=== PATIENT | male | born 1940 ===

== ENCOUNTER → 2020-09-20 | Outpatient (CLI) | payer MEDICARE, OTHER | LOC: LAB SHORT 08:50 → PLD 08:50 | DX: L81.4 Other melanin hyperpigmentation (principal); L82.1 Other seborrheic keratosis | CPT/HCPCS: 88305 ==

== ENCOUNTER → 2021-03-20 | Outpatient (CLI) | payer MEDICARE, OTHER | LOC: LAB SHORT 13:26 → LAB 13:26 | DX: D48.5 Neoplasm of uncertain behavior of skin (principal); L81.4 Other melanin hyperpigmentation; D22.5 Melanocytic nevi of trunk | CPT/HCPCS: 88305 ==

== ENCOUNTER → 2021-05-28 | Outpatient (CLI) | payer MEDICARE, OTHER | END | disposition home or self-care (01) | LOC: LAB SHORT 15:24 → LAB 15:24 | DX: D48.5 Neoplasm of uncertain behavior of skin (principal) | CPT/HCPCS: 88305 ==

== ENCOUNTER 2021-07-17 01:16 | Day surgery (SDC) | payer MEDICARE, OTHER | END 2021-07-17 22:45 | disposition home or self-care (01) | LOC: WOUND 01:16 | DX: L59.8 Other specified disorders of the skin and subcutaneous tissue related to radiation (principal); K14.8 Other diseases of tongue; R13.11 Dysphagia, oral phase; I89.0 Lymphedema, not elsewhere classified; K11.7 Disturbances of salivary secretion; Z85.819 Personal history of malignant neoplasm of unspecified site of lip, oral cavity, and pharynx; Z87.891 Personal history of nicotine dependence | CPT/HCPCS: G0463 ==

== ENCOUNTER 2021-07-24 03:35 | Day surgery (SDC) | payer MEDICARE, OTHER | END 2021-07-24 23:39 | disposition home or self-care (01) | LOC: HBO 03:35 | DX: L59.8 Other specified disorders of the skin and subcutaneous tissue related to radiation (principal); I89.0 Lymphedema, not elsewhere classified; K14.8 Other diseases of tongue; R13.11 Dysphagia, oral phase; K11.7 Disturbances of salivary secretion; Z85.819 Personal history of malignant neoplasm of unspecified site of lip, oral cavity, and pharynx; Z87.891 Personal history of nicotine dependence; Y84.2 Radiological procedure and radiotherapy as the cause of abnormal reaction of the patient, or of later complication, without mention of misadventure at the time of the procedure | CPT/HCPCS: G0277 ==

== ENCOUNTER 2021-07-25 03:20 | Day surgery (SDC) | payer MEDICARE, OTHER | END 2021-07-25 23:52 | disposition home or self-care (01) | LOC: HBO 03:20 | DX: L59.8 Other specified disorders of the skin and subcutaneous tissue related to radiation (principal); K14.8 Other diseases of tongue; R13.11 Dysphagia, oral phase; I89.0 Lymphedema, not elsewhere classified; K11.7 Disturbances of salivary secretion; Z87.891 Personal history of nicotine dependence; Z85.819 Personal history of malignant neoplasm of unspecified site of lip, oral cavity, and pharynx | CPT/HCPCS: G0277 ==

== ENCOUNTER 2021-07-26 03:54 | Day surgery (SDC) | payer MEDICARE, OTHER | END 2021-07-26 22:51 | disposition home or self-care (01) | LOC: HBO | DX: L59.8 Other specified disorders of the skin and subcutaneous tissue related to radiation (principal); K14.8 Other diseases of tongue; R13.11 Dysphagia, oral phase; I89.0 Lymphedema, not elsewhere classified; K11.7 Disturbances of salivary secretion; Z87.891 Personal history of nicotine dependence; Z85.819 Personal history of malignant neoplasm of unspecified site of lip, oral cavity, and pharynx | CPT/HCPCS: G0277 ==

== ENCOUNTER 2021-07-27 05:20 | Day surgery (SDC) | payer MEDICARE, OTHER | END 2021-07-27 22:58 | disposition home or self-care (01) | LOC: HBO 05:20 | DX: L59.8 Other specified disorders of the skin and subcutaneous tissue related to radiation (principal); K14.8 Other diseases of tongue; R13.11 Dysphagia, oral phase; I89.0 Lymphedema, not elsewhere classified; K11.7 Disturbances of salivary secretion; Z85.819 Personal history of malignant neoplasm of unspecified site of lip, oral cavity, and pharynx; Z87.891 Personal history of nicotine dependence | CPT/HCPCS: G0277 ==

== ENCOUNTER 2021-08-07 03:05 | Day surgery (SDC) | payer MEDICARE, OTHER | END 2021-08-07 22:57 | disposition home or self-care (01) | LOC: HBO 03:05 | DX: L59.8 Other specified disorders of the skin and subcutaneous tissue related to radiation (principal); K14.8 Other diseases of tongue; R13.11 Dysphagia, oral phase; I89.0 Lymphedema, not elsewhere classified; K11.7 Disturbances of salivary secretion; Z85.819 Personal history of malignant neoplasm of unspecified site of lip, oral cavity, and pharynx; Z87.891 Personal history of nicotine dependence | CPT/HCPCS: G0277 ==

== ENCOUNTER 2021-08-08 02:06 | Day surgery (SDC) | payer MEDICARE, OTHER | END 2021-08-08 23:12 | disposition home or self-care (01) | LOC: HBO 02:06 | DX: L59.8 Other specified disorders of the skin and subcutaneous tissue related to radiation (principal); Z85.819 Personal history of malignant neoplasm of unspecified site of lip, oral cavity, and pharynx; K14.8 Other diseases of tongue; R13.11 Dysphagia, oral phase; I89.0 Lymphedema, not elsewhere classified; K11.7 Disturbances of salivary secretion; Z87.891 Personal history of nicotine dependence | CPT/HCPCS: G0277 ==

== ENCOUNTER 2021-08-09 01:04 | Day surgery (SDC) | payer MEDICARE, OTHER | END 2021-08-09 23:35 | disposition home or self-care (01) | LOC: HBO 01:04 | DX: L59.8 Other specified disorders of the skin and subcutaneous tissue related to radiation (principal); Y84.2 Radiological procedure and radiotherapy as the cause of abnormal reaction of the patient, or of later complication, without mention of misadventure at the time of the procedure; K14.8 Other diseases of tongue; K11.7 Disturbances of salivary secretion; I89.0 Lymphedema, not elsewhere classified; R13.11 Dysphagia, oral phase; Z85.819 Personal history of malignant neoplasm of unspecified site of lip, oral cavity, and pharynx; Z87.891 Personal history of nicotine dependence | CPT/HCPCS: G0277 ==

== ENCOUNTER 2021-08-10 01:40 | Day surgery (SDC) | payer MEDICARE, OTHER | END 2021-08-10 12:00 | disposition home or self-care (01) | LOC: HBO 01:40 | DX: L59.8 Other specified disorders of the skin and subcutaneous tissue related to radiation (principal); Z85.819 Personal history of malignant neoplasm of unspecified site of lip, oral cavity, and pharynx; K14.8 Other diseases of tongue; R13.11 Dysphagia, oral phase; I89.0 Lymphedema, not elsewhere classified; K11.7 Disturbances of salivary secretion; Z87.891 Personal history of nicotine dependence | CPT/HCPCS: G0277 ==

== ENCOUNTER 2021-08-13 04:16 | Day surgery (SDC) | payer MEDICARE, OTHER | END 2021-08-13 12:00 | disposition home or self-care (01) | LOC: HBO 04:16 | DX: L59.8 Other specified disorders of the skin and subcutaneous tissue related to radiation (principal); K14.8 Other diseases of tongue; I89.0 Lymphedema, not elsewhere classified; K11.7 Disturbances of salivary secretion; R13.11 Dysphagia, oral phase; Z85.819 Personal history of malignant neoplasm of unspecified site of lip, oral cavity, and pharynx; Z87.891 Personal history of nicotine dependence | CPT/HCPCS: G0277 ==

== ENCOUNTER 2021-08-14 05:51 | Day surgery (SDC) | payer MEDICARE, OTHER | END 2021-08-14 22:54 | disposition home or self-care (01) | LOC: HBO 05:51 | DX: L59.8 Other specified disorders of the skin and subcutaneous tissue related to radiation (principal); K14.8 Other diseases of tongue; R13.11 Dysphagia, oral phase; I89.0 Lymphedema, not elsewhere classified; K11.7 Disturbances of salivary secretion; Z85.819 Personal history of malignant neoplasm of unspecified site of lip, oral cavity, and pharynx; Z87.891 Personal history of nicotine dependence | CPT/HCPCS: G0277 ==

== ENCOUNTER 2021-08-15 00:36 | Day surgery (SDC) | payer MEDICARE, OTHER | END 2021-08-15 23:17 | disposition home or self-care (01) | LOC: HBO 00:36 | DX: L59.8 Other specified disorders of the skin and subcutaneous tissue related to radiation (principal); R59.1 Generalized enlarged lymph nodes; K14.8 Other diseases of tongue; R13.11 Dysphagia, oral phase; T66.XXXS Radiation sickness, unspecified, sequela; I89.0 Lymphedema, not elsewhere classified; K11.7 Disturbances of salivary secretion; Y84.2 Radiological procedure and radiotherapy as the cause of abnormal reaction of the patient, or of later complication, without mention of misadventure at the time of the procedure; Z85.819 Personal history of malignant neoplasm of unspecified site of lip, oral cavity, and pharynx; Z87.891 Personal history of nicotine dependence | CPT/HCPCS: G0277 ==

== ENCOUNTER 2021-08-16 01:10 | Day surgery (SDC) | payer MEDICARE, OTHER | END 2021-08-17 23:05 | disposition home or self-care (01) | LOC: HBO 01:10 | DX: L59.8 Other specified disorders of the skin and subcutaneous tissue related to radiation (principal); K14.8 Other diseases of tongue; R13.11 Dysphagia, oral phase; I89.0 Lymphedema, not elsewhere classified; K11.7 Disturbances of salivary secretion; Z87.891 Personal history of nicotine dependence; Z85.819 Personal history of malignant neoplasm of unspecified site of lip, oral cavity, and pharynx | CPT/HCPCS: G0277 ==

== ENCOUNTER 2021-08-20 02:56 | Day surgery (SDC) | payer MEDICARE, OTHER | END 2021-08-20 22:52 | disposition home or self-care (01) | LOC: HBO 02:56 | DX: L59.8 Other specified disorders of the skin and subcutaneous tissue related to radiation (principal); K14.8 Other diseases of tongue; R13.11 Dysphagia, oral phase; I89.0 Lymphedema, not elsewhere classified; K11.7 Disturbances of salivary secretion; Z87.891 Personal history of nicotine dependence; Z85.819 Personal history of malignant neoplasm of unspecified site of lip, oral cavity, and pharynx | CPT/HCPCS: G0277 ==

== ENCOUNTER 2021-08-21 01:16 | Day surgery (SDC) | payer MEDICARE, OTHER | END 2021-08-21 23:06 | disposition home or self-care (01) | LOC: HBO 01:16 | DX: L59.8 Other specified disorders of the skin and subcutaneous tissue related to radiation (principal); K14.8 Other diseases of tongue; R13.11 Dysphagia, oral phase; I89.0 Lymphedema, not elsewhere classified; K11.7 Disturbances of salivary secretion; Z87.891 Personal history of nicotine dependence; Z85.819 Personal history of malignant neoplasm of unspecified site of lip, oral cavity, and pharynx | CPT/HCPCS: G0277 ==

== ENCOUNTER 2021-08-22 02:54 | Day surgery (SDC) | payer MEDICARE, OTHER | END 2021-08-22 23:06 | disposition home or self-care (01) | LOC: HBO 02:54 | DX: L59.8 Other specified disorders of the skin and subcutaneous tissue related to radiation (principal); K14.8 Other diseases of tongue; R13.11 Dysphagia, oral phase; I89.0 Lymphedema, not elsewhere classified; K11.7 Disturbances of salivary secretion; Z87.891 Personal history of nicotine dependence; Z85.819 Personal history of malignant neoplasm of unspecified site of lip, oral cavity, and pharynx | CPT/HCPCS: G0277 ==

== ENCOUNTER 2021-08-22 03:05 | Day surgery (SDC) | payer MEDICARE, OTHER | END 2021-08-22 23:06 | disposition home or self-care (01) | LOC: WOUND 03:05 | DX: L59.8 Other specified disorders of the skin and subcutaneous tissue related to radiation (principal); K14.8 Other diseases of tongue; R13.11 Dysphagia, oral phase; I89.0 Lymphedema, not elsewhere classified; K11.7 Disturbances of salivary secretion; Z85.819 Personal history of malignant neoplasm of unspecified site of lip, oral cavity, and pharynx; Z87.891 Personal history of nicotine dependence; Y84.2 Radiological procedure and radiotherapy as the cause of abnormal reaction of the patient, or of later complication, without mention of misadventure at the time of the procedure | CPT/HCPCS: G0463 ==

== ENCOUNTER 2021-08-23 01:21 | Day surgery (SDC) | payer MEDICARE, OTHER | END 2021-08-23 23:31 | disposition home or self-care (01) | LOC: HBO 01:21 | DX: L59.8 Other specified disorders of the skin and subcutaneous tissue related to radiation (principal); K14.8 Other diseases of tongue; R13.11 Dysphagia, oral phase; I89.0 Lymphedema, not elsewhere classified; K11.7 Disturbances of salivary secretion; Z85.819 Personal history of malignant neoplasm of unspecified site of lip, oral cavity, and pharynx; Z87.891 Personal history of nicotine dependence | CPT/HCPCS: G0277 ==

== ENCOUNTER 2021-08-24 05:14 | Day surgery (SDC) | payer MEDICARE, OTHER | END 2021-08-24 23:55 | disposition home or self-care (01) | LOC: HBO 05:14 | DX: L59.8 Other specified disorders of the skin and subcutaneous tissue related to radiation (principal); K14.8 Other diseases of tongue; R13.11 Dysphagia, oral phase; I89.0 Lymphedema, not elsewhere classified; K11.7 Disturbances of salivary secretion; Z85.819 Personal history of malignant neoplasm of unspecified site of lip, oral cavity, and pharynx; Z87.891 Personal history of nicotine dependence | CPT/HCPCS: G0277 ==

== ENCOUNTER 2021-08-27 03:47 | Day surgery (SDC) | payer MEDICARE, OTHER | END 2021-08-27 22:43 | disposition home or self-care (01) | LOC: HBO 03:47 | DX: L59.8 Other specified disorders of the skin and subcutaneous tissue related to radiation (principal); K14.8 Other diseases of tongue; R13.11 Dysphagia, oral phase; I89.0 Lymphedema, not elsewhere classified; K11.7 Disturbances of salivary secretion; Z85.819 Personal history of malignant neoplasm of unspecified site of lip, oral cavity, and pharynx; Z87.891 Personal history of nicotine dependence | CPT/HCPCS: G0277 ==

== ENCOUNTER 2021-08-28 04:23 | Day surgery (SDC) | payer MEDICARE, OTHER | END 2021-08-28 12:00 | disposition home or self-care (01) | LOC: HBO 04:23 | DX: L59.8 Other specified disorders of the skin and subcutaneous tissue related to radiation (principal); K14.8 Other diseases of tongue; R13.11 Dysphagia, oral phase; I89.0 Lymphedema, not elsewhere classified; K11.7 Disturbances of salivary secretion; Z85.819 Personal history of malignant neoplasm of unspecified site of lip, oral cavity, and pharynx; Z87.891 Personal history of nicotine dependence | CPT/HCPCS: G0277 ==

== ENCOUNTER 2021-08-30 01:28 | Day surgery (SDC) | payer MEDICARE, OTHER | END 2021-08-30 22:44 | disposition home or self-care (01) | LOC: HBO 01:28 | DX: L59.8 Other specified disorders of the skin and subcutaneous tissue related to radiation (principal); K14.8 Other diseases of tongue; R13.11 Dysphagia, oral phase; I89.0 Lymphedema, not elsewhere classified; K11.7 Disturbances of salivary secretion; Z85.819 Personal history of malignant neoplasm of unspecified site of lip, oral cavity, and pharynx; Z87.891 Personal history of nicotine dependence | CPT/HCPCS: G0277 ==

== ENCOUNTER 2021-09-10 01:09 | Day surgery (SDC) | payer MEDICARE, OTHER | END 2021-09-10 23:21 | disposition home or self-care (01) | LOC: HBO 01:09 | DX: L59.8 Other specified disorders of the skin and subcutaneous tissue related to radiation (principal); K14.8 Other diseases of tongue; R13.11 Dysphagia, oral phase; I89.0 Lymphedema, not elsewhere classified; K11.7 Disturbances of salivary secretion; Z85.819 Personal history of malignant neoplasm of unspecified site of lip, oral cavity, and pharynx; Z87.891 Personal history of nicotine dependence | CPT/HCPCS: G0277 ==

== ENCOUNTER 2021-09-11 02:25 | Day surgery (SDC) | payer MEDICARE, OTHER | END 2021-09-11 23:15 | disposition home or self-care (01) | LOC: HBO 02:25 | DX: L59.8 Other specified disorders of the skin and subcutaneous tissue related to radiation (principal); Y84.2 Radiological procedure and radiotherapy as the cause of abnormal reaction of the patient, or of later complication, without mention of misadventure at the time of the procedure; R59.1 Generalized enlarged lymph nodes; K14.8 Other diseases of tongue; R13.11 Dysphagia, oral phase; T66.XXXS Radiation sickness, unspecified, sequela; I89.0 Lymphedema, not elsewhere classified; K11.7 Disturbances of salivary secretion; Z85.819 Personal history of malignant neoplasm of unspecified site of lip, oral cavity, and pharynx; Z87.891 Personal history of nicotine dependence | CPT/HCPCS: G0277 ==